=== PATIENT | female | born 1970 | race Caucasian/White ===

== ENCOUNTER 2022-03-07 10:54 | Emergency (ER) | payer BC, SELFPAY ==
--- NOTE | 2022-03-07 11:02 | ED.EYEPROB ---
HPI - Eye Problem General Chief complaint: Eye Problems Stated complaint: EYE REDNESS Time Seen by Provider: 03/07/22 11:02 Source: patient Mode of arrival: ambulatory Limitations: no limitations History of Present Illness HPI Narrative: 51-year-old female presents with complaint of itching, swelling, pain around both eyes. Reports that she has had some intermittent redness, white milky drainage. Symptoms for approximately 3 to 5 days. Tried Claritin with no relief. No vision changes. Patient's BP is high today. States that she has been told in the past that is stress-induced. Currently does not have a primary care physician. All systems reviewed and negative as noted above. Related Data Allergies Allergy/AdvReac Type Severity Reaction Status Date / Time codeine Allergy Unknown Hyperactive Verified 09/21/18 16:16 Review of Systems Review of Systems: CONSTITUTIONAL: Denies fever, chills, or sweats. EYES: Denies visual changes reports redness, itching, discharge. ENT: Denies rhinorrhea, congestion, sore throat, or otalgia. CARDIOVASCULAR: Denies chest pain, palpitations, or edema. RESPIRATORY: Denies cough or dyspnea. GASTROINTESTINAL: Denies abdominal pain, nausea, vomiting, or diarrhea. GENITOURINARY: Denies dysuria or hematuria. SKIN: Denies rash or itching. MUSCULOSKELETAL: Denies back pain, joint pain, or myalgia. NEUROLOGIC: Denies headache, numbness, or weakness. PSYCHIATRIC: Denies anxiety or depression. All other systems reviewed are negative, except as documented in HPI. [facility] Family History Family History (Updated 09/21/18 @ 16:46 by DOCTOR UNKNOWN) Father Family history of mental disorder Family history of cardiovascular disease Mother Family history of mental disorder Social History Social History Smoking status: Never smoker Alcohol intake: current Comments At time of signature, agree with nursing past medical, surgical, social and family history. There is no relevant family history pertinent to the presenting complaint. Exam Narrative: GENERAL: This is a well-nourished, well-developed patient, in no apparent distress. HEAD: normocephalic, atraumatic. EYES: PERRL. Sclera and conjunctive erythematous. Mild swelling to conjunctive. vision is grossly intact. EARS: External ears normal NOSE: External nose normal THROAT: Mucous membranes moist NECK: Neck supple, non-tender without lymphadenopathy, masses or thyromegaly. CARDIOVASCULAR: Regular rate and rhythm without murmurs, gallops, or rubs. RESPIRATORY: Clear to auscultation. Breath sounds equal bilaterally. No wheezes, rales, or rhonchi. SKIN: warm, Dry, intact with no suspicious lesions or rash, good texture and turgor. NEURO: awake, alert, and oriented to person, place and time. There were no obvious focal neurologic abnormalities. EXTREMITIES: Normal range of motion to all extremities. . Course Course Level of Care: Express Care Visit Vital Signs Vital signs: Vital Signs Temperature 36.6 C 03/07/22 11:07 Pulse Rate 110 H 03/07/22 11:07 Respiratory Rate 16 03/07/22 11:07 Blood Pressure 186/90 H 03/07/22 11:07 Pulse Oximetry 100 03/07/22 11:07 Temperature 36.6 C 03/07/22 11:07 Pulse Rate 110 H 03/07/22 11:07 Respiratory Rate 16 03/07/22 11:07 Blood Pressure 186/90 H 03/07/22 11:07 Pulse Oximetry 100 03/07/22 11:07 Reviewed MDM - Eye Problem MDM Narrative Medical decision making narrative: Patient is aware of diagnosis, understands and agrees to treatment plan. Anticipatory guidance given. Patient agrees to follow-up as directed and is aware of reasons to seek care at the emergency department. Portions of this record may have been created with voice recognition software Differential Diagnosis Differential diagnosis: Likely corneal abrasion and conjunctivitis Discharge Plan Discharge Clinical Impression: Bacterial conjunctivitis, Elevated blood pressure reading Patient Dispositi
[2022-03-07 11:07] VITALS: BP 186/90; PULSE 110; RESP 16; TEMP 36.6; O2SAT 100
== END 2022-03-07 11:20 | disposition home or self-care (01) ==
PROVIDERS: Emergency Provider Nurse Practitioner Family
DX: H10.9 Unspecified conjunctivitis (principal); R03.0 Elevated blood-pressure reading, without diagnosis of hypertension
CPT/HCPCS: 99203; G0463

== ENCOUNTER → 2023-09-04 15:48 | Outpatient (CLI) | payer BC, SELFPAY ==
--- NOTE | ~2023-09-04 | MM_ITS ---
EXAMINATION: MM screening gualberto BI w priscilla HISTORY: Screening TECHNIQUE: Craniocaudal and mediolateral oblique 3-D tomosynthesis images were obtained and synthetic 2-D images were generated. CAD analysis was submitted and interpreted. COMPARISON: No prior mammogram is available for comparison at this institution. BREAST PARENCHYMAL COMPOSITION: The breasts are extremely dense, which lowers the sensitivity of mamm ography FINDINGS: There are bilateral breast asymmetries in the outer aspect of the right breast on CC view a nd inner aspect of the left breast on CC view. There are no discrete masses or suspicious clustered c alcifications. IMPRESSION: 1. Bilateral breast asymmetries. 2. Comparison to previous outside mammograms recommended to assess stability. BI-RADS Category 0: Incomplete: Needs additional imaging evaluation. Reviewed, dictated and finalized at location A.
== END ==
PROVIDERS: PCP Obstetrics & Gynecology Gynecology; Visit Provider Family Medicine
DX: Z12.31 Encounter for screening mammogram for malignant neoplasm of breast (principal); R92.8 Other abnormal and inconclusive findings on diagnostic imaging of breast
CPT/HCPCS: 77063; 77067

== ENCOUNTER → 2023-10-14 08:53 | Outpatient (CLI) | payer BC, SELFPAY ==
--- NOTE | ~2023-10-14 | MMUS_ITS ---
EXAMINATION: MM diagnostic gualberto BI w priscilla, US breast BI complete HISTORY: Bilateral mammographic asymmetries reported on 09/04/2023 screening mammogram examination. E xtremely dense fibroglandular stroma. TECHNIQUE: Additional 3-D tomosynthesis images of both breasts were performed and synthetic 2-D image s were generated. CAD analysis was submitted and interpreted. High resolution complete bilateral [place] ultrasound examination including all 4 quadrants and subareolar areas was performed. COMPARISON: 09/04/2023 bilateral screening mammogram FINDINGS: MAMMOGRAPHIC FINDINGS: Multiple bilateral breast masses are suggested, but the extremely dense fibroglandular stroma obscure s margins, limiting assessment. There is one circumscribed approximately 2 cm mass with halo sign in the anterior central right breast (spot compression MLO Tomosynthesis image 33/68), which is most con sistent with benign cyst. Another approximately 3.2 x 4.8 cm circumscribed opacity with halo sign is noted in the inner mid left breast. Additional probable cysts with halo sign is noted on the left. Scattered bilateral benign microcalcifications are noted. No architectural distortion, skin thickening or retraction is evident. ULTRASOUND: Multiple bilateral benign breast cysts are noted, measuring up to 2.3 cm maximal dimension on the rig ht 8:00 subareolar area and up to 4.9 cm on the left at 11-1:00 subareolar area.. No suspicious mass or shadowing is detected. IMPRESSION: 1. Multiple bilateral benign cysts and bilateral benign calcifications; no mammographic or sonographi c evidence of malignancy 2. Routine annual mammographic screening is recommended BI-RADS Category 2: Benign finding(s). Reviewed, dictated and finalized at location A. CONDUCTOR IMPRESSION: 1. Multiple bilateral benign cysts and bilateral benign calcifications; no mamm ographic or sonographic evidence of malignancy 2. Routine annual mammographic screening is recommended BI-RADS Category 2: Benign finding(s).
== END ==
PROVIDERS: PCP Obstetrics & Gynecology Gynecology; Visit Provider Physician Assistant
DX: R92.8 Other abnormal and inconclusive findings on diagnostic imaging of breast (principal)
CPT/HCPCS: 76641; 77062; 77066; G0279

== ENCOUNTER 2025-05-24 16:57 | Outpatient (CLI) | payer BC, SELFPAY ==
--- OUTSIDE RECORDS SUMMARY | 2025-05-24 17:00 | XMS_ITS | Encounter Summary ---
Author Organization [facility] Healthcare Address [address] [place] [address] Care Team Providers Care Whiskey Regauger Name Role Phone Stanley Vega MD Primary Care Provider [phone] No, Physician Primary Care Provider [phone] Encounter Details Date Type Department Care Team (Late st Contact Info) Description 04/23/2018 Orders Only [facility] Health Information Management [address] [place] [id number] Scanning, Provider Social History Tobacco Use Types Packs/Day Years Used Date Smoking Tobacco: Never Assessed Comments Unknown Sex and Gender Information Value Date Recorded Sex Assigned at Not on file 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 Gender Identity Not on file Sexual Orientation Not on file documented as of this encounter Plan of Treatment Not on file documented as of this encounter Procedures Procedure Name Priority Date/Time Associated Diagnosis Comments CARDIOLOGY DOCUMENT SCAN 04/23/2018 documented in this encounter Results * Cardiology Document Scan (04/23/2018) Anatomical Region Laterality Modality Other us Provider Scanning CV CARDIAC SERVICES PROCEDURES Edited Result - Final documented in this encounter Visit Diagnoses Not on filedocumented in this encounter Care Teams Whiskey Regauger Relationship Specialty Start Date End Date Stanley Vega MD [address] [place] [address] PCP - General 03/03/13 05/30/18 No, Physician PCP - General 05/31/18 documented as of this encounter
--- OUTSIDE RECORDS SUMMARY | 2025-05-24 17:00 | XMS_ITS | Referral Summary ---
Author Organization [facility] [place] [address] Address [address] [place] [address] Care Team Providers Care Crnp Name Role Phone No, Physician Primary Care Provider [phone] Allergies Active Allergy Reactions Criticality Noted Date Comments Codeine Unknown 03/15/2018 hyper Medications No known medications Active Problems Problem Noted Date Diagnosed Date Other chest pain 05/31/2018 Assessment & Plan (05/31/2018 12:00 PM CDT): Resolved. Stress test negative for ischemia. Palpitations 05/31/2018 Assessment & Plan (05/31/2018 12:00 PM CDT): Very rare now. If they become more frequent in the future then we will consider doing event monitor. Blood pressure alteration 05/31/2018 Assessment & Plan (05/31/2018 12:01 PM CDT): Patient is a blood pressure varies with the level of the stress. Currently she is off work and her blood pressure is mostly running between 114-130. At this time observe. Continue to check blood pressure diary. 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 Gender Identity Not on file Sexual Orientation Not on file Last Filed Vital Signs Vital Sign Reading Time Taken Comments Blood Pressure 122/82 05/31/2018 11:43 AM CDT Pulse 87 05/31/2018 11:43 AM CDT Temperature - - Respiratory Rate - - Oxygen Saturation 99% 05/31/2018 11: 43 AM CDT Inhaled Oxygen Concentration - - Weight 60.7 kg (133 lb 12.8 oz) 018 11:43 AM CDT Height 160 cm (5' 3) 05/31/2018 11:43 AM CDT Body Mass Index 23.7 05/31/2018 11:43 AM CDT Plan of Treatment Not on file Insurance [facility] PPO Care Teams Crnp Relationship Specialty Start Date End Date No, Physician PCP - General 05/31/18
--- OUTSIDE RECORDS SUMMARY | 2025-05-24 17:00 | XMS_ITS | Clinical Summary ---
Author Organization [facility] [place] [address] Address [address] [place] [address] Care Team Providers Care Endodontics Dentist Name Role Phone No, Physician Primary Care Provider [phone] Allergies Active Allergy Reactions Criticality Noted Date [...] observe. Continue to check blood pressure diary. 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
--- OUTSIDE RECORDS SUMMARY | 2025-05-24 17:00 | XMS_ITS | Clinical Summary ---
Author Organization [facility] Address [address] [place] [address] Care Team Providers Care Bonus Clerk Name Role Phone Unavailable Primary Care Provider Unavailabl e Source Comments [facility],non-owned Affiliates and Associated Physician Practices is amultiple site organization consisting of ambulatory clinics and hospital sitesin [place], [place], [place] and [place]. This disclosure is being madepursuant to the Care Everywhere program and may not contain all information available regarding this patient. Last updated 18.[facility] Allergies Active Allergy Reactions Criticality Noted Date Comments Codeine Other 03/15/2018 hyper Medications * Be aware that medications may not be up to date on this document. Alwaysverify current medications with the patient. 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 Gender Identity Not on file Sexual Orientation Not on file Last Filed Vital Signs Vital Sign Reading Time Taken Comments Blood Pressure 140/84 03/15/2018 2:44 PM CDT Pulse 83 03/15/2018 2:44 PM CDT Temperature 36.1 C (97 F) 03/15/2018 2:44 PM CDT Respiratory Rate 18 03/15/2018 2:44 PM CDT Oxygen Saturation 97% 03/15/2018 2:44 PM CDT Inhaled Oxygen Concentration - - Weight 59 kg (130 lb) 03/15/2018 2:44 PM CDT Height 160 cm (5' 3) 03/15/2018 2:44 PM CDT Body Mass Index 23.03 03/15/2018 2:44 PM CDT Plan of Treatment Health Maintenance Due Date Last Done Comments COLOGUARD (AGES 45-75) - COL ON CA SCREENING 1968 COLON MONITORING 1968 COLONOSCOPY - COLON CA SCREENING 1968 CT COLONOGRAPHY - COLON CA SCREENING 1968 Colorectal Cancer Screening 1968 FIT - COLON CA SCREENING 1968 FLEX SIG - COLON CA SCREENING 1968 LIPID TESTING 1968 MAMMOGRAM 1968 HIV SCREENING 1983 HEPATITIS C SCREENING 11/18/1986 DTAP/TDAP/TD VACCINES (1 - Tdap) 1987 HEPATITIS B VACCINE (1 of 3 - 19+ 3-dose series) 1987 PNEUMOCOCCAL VACCINE 50+ (1 of 1 - PCV) 2018 ZOSTER VACCINE (1 of 2) 2018 COVID-19 VACCINE (1 - 2023-2 5 season) 2024 DEPRESSION SCREENING 11/23/2024 INFLUENZA VACCINE (Season Ended) 2025 HIB VACCINE Aged Out No longer eligi ble based on patient's age to complete this topic HPV VACCINE Aged Out No longer eligi ble based on patient's age to complete this topic MENINGOCOCCAL (Group B) VACC INE SHARED DECISION-MAKING Aged Out No longer eligibl e based on patient's age to complete this topic MENINGOCOCCAL GROUPS A/C/Y/W VACCINE Aged Out No longer eligible b ased on patient's age to complete this topic Insurance [employer]
[2025-05-24 18:34] LABS: Add Urine Microscopic? YES; Appearance Urine Clear (Clear); Glucose Urine UA Negative (Negative); Leukocyte Esterase Ur 3+ LEU/UL (Negative); Need Manual Microscopic Reviewed; Nitrate Urine Positive (Negative); Non Pathogenic Casts 0-2; Specific Grav Ur 1.003 (1.001-1.035)
== END 2025-05-24 16:58 | disposition home or self-care (01) ==
LOC: ANHLAB 16:58
PROVIDERS: PCP Family Medicine
DX: R35.0 Frequency of micturition (principal)
CPT/HCPCS: 81001; 87077; 87086; 87186